=== PATIENT | female | born 1970 | race Caucasian/White ===

== ENCOUNTER 2016-10-12 11:45 | Emergency (ER) | payer MEDICAID ==
[~2016-10-12] VITALS: Ht 152.4 cm; Wt 72.6 kg
[~2016-10-12 11:45] MED LIST: ATIVAN1 MG PO; DONNATAL; DONNATAL1 TAB PO; NO MEDS; NORCO 5/325 MG1 TAB PO; PHENERGAN; PHENERGAN25 M1 PO; PRENATAL VITAMI1 T10 PO; SOMA350 MG PO; SYMBICORT1 AE1 IH; VICODIN; VICODIN-ES1 TAB; bcp
[2016-10-12 11:49] VITALS: BP 139/102
--- NOTE | 2016-10-12 13:00 | NUR ---
Patient ambulated to bed 6. RN evaluating patient at bedside.
--- NOTE | 2016-10-12 13:06 | NUR ---
PER PT SHE JUST URINATED , SHE CANNT GIVE URINE AT THIS TIME, INSTRUCTED TO LET NURSE KNOW WHEN SHE NEED TO GO TO THE BATHROOM AND PT AGREED WITH IT.
--- NOTE | 2016-10-12 13:07 | NUR ---
PATIENT PRESENTS TO ED DUE TO ABDOMINAL PAIN X3 DAYS. HX IBS. . PT STATES ITS BEEN A LONG TIME I DONT HAVE IBS, WITH N/V AND DIRRHEA, SKIN IS PINK/WARM/DRY; AAOX4 WITH EVEN AND STEADY GAIT; LUNGS CLEAR BL; HR EVEN AND REGULAR; PT DENIES ANY FEVER, CP, SOB, OR COUGH AT THIS TIME; PATIENT STATES PAIN OF 9/10 AT THIS TIME; PATIENT POSITIONED FOR COMFORT; HOB ELEVATED; BEDRAILS UP X2; BED DOWN. DR. GUY AT BEDSIDE
--- NOTE | 2016-10-12 13:07 | NUR ---
Dr. Franklin evaluating patient at bedside.
[2016-10-12] MEDS ORDERED: NACL 0.9% 1,000 ML IV SCH (13:10)
[2016-10-12] MEDS ORDERED: FAMOTIDINE 20 MG/2 ML VIAL IVP ONE (13:10)
[2016-10-12] MEDS ORDERED: ONDANSETRON 4 MG/2 ML VIAL IVP ONE (13:10)
[2016-10-12] MEDS ORDERED: DEXAMETHASONE 10 MG/ML VIAL IVP ONE (13:15)
--- NOTE | 2016-10-12 13:43 | NUR ---
TRIED BY TWO NURSES FOR IV INSERTION UNABLE, PER PT SHE IS VERY HARD STICK AND DOESNT WANT TO BE POKE AGAIN, DR. GUY AWARE
--- NOTE | 2016-10-12 13:57 | NUR ---
DR. GUY AWARE OF THE RESULT OF URINE DIPSTICK AND URINE PREG AND ALSO AWARE PT WANTS PAIN MEDICATION
--- NOTE | 2016-10-12 14:24 | NUR ---
DR. GUY TRY TO PUT IV IN THE NECK BUT UNABLE,PT AAO, NO DISTRESS NOTED.
[2016-10-12] MEDS ORDERED: HYDROmorphone 1 MG/ML AMP IM ONE (14:35)
--- NOTE | 2016-10-12 15:12 | NUR ---
PT VERBALIZED TRY AGAIN TO PUT AN IV ON MY LEFT ARM,
--- NOTE | 2016-10-12 15:40 | NUR ---
TALKED TO DR. GUY PT COMPLAINING OF ITCHINESS ALL OVER , DR GUY WILL ORDER MEDS.
[2016-10-12] MEDS ORDERED: diphenhydrAMINE 50 MG/ML VIAL IVP ONE (15:55)
--- NOTE | 2016-10-12 16:30 | NUR ---
PT TALKING TO STAFF ,IVF ONGOING WELL TOLERATED.
[2016-10-12] MEDS ORDERED: HYDROmorphone 1 MG/ML AMP IVP ONE ×2 (16:45→18:30)
--- NOTE | 2016-10-12 17:15 | NUR ---
PT AAO, IVF ONGOING WELL TOLERATED, IV SITE INTACT, PT TALKING ABOUT RAMY VICTORIA.
--- NOTE | 2016-10-12 19:03 | NUR ---
Patient discharged with v/s stable. Written and verbal after care instructions given and explained. Patient alert, oriented and verbalized understanding of instructions. Ambulatory with steady gait. ASSISTED BY .All questions addressed prior to discharge. ID band removed. Patient advised to follow up with PMD. Rx of TYLENOL,FLAGYL AND BACTRIM given. Patient educated on indication of medication including possible reaction and side effects. Opportunity to ask questions provided and answered.
[2016-10-12 19:04] VITALS: BP 127/77
== END 2016-10-12 19:03 | disposition home or self-care (01) ==
LOC: MED 11:49
DX: K58.9 Irritable bowel syndrome, unspecified (principal); R03.0 Elevated blood-pressure reading, without diagnosis of hypertension; J45.909 Unspecified asthma, uncomplicated; Z88.1 Allergy status to other antibiotic agents; Z88.5 Allergy status to narcotic agent; Z88.0 Allergy status to penicillin
CPT/HCPCS: 36415; 80053; 81001; 81025; 82150; 83690; 85025; 96361; 96372; 96374; 96375; 96376; 99285; J1100; J1170; J1200; J2405; J3490; J7030

== ENCOUNTER 2019-09-01 12:55 | Emergency (ER) | payer MEDICAID ==
[~2019-09-01] VITALS: Ht 152.4 cm; Wt 72.6 kg
[2019-09-01 13:02] VITALS: BP 118/84
--- NOTE | 2019-09-01 13:07 | NUR ---
DR. LAZAR EVALUATING PT AT BEDSIDE
[2019-09-01] MEDS ORDERED: NALOXONE PFS 2 MG/2 ML SYR ONE (13:09)
[2019-09-01] MEDS ORDERED: NACL 0.9% 1,000 ML IV ONE ×2 (13:12→13:15)
[2019-09-01] MEDS ORDERED: NALOXONE PFS 2 MG/2 ML SYR IVP ONE (13:15)
--- NOTE | 2019-09-01 13:20 | NUR ---
pt given narcan, nadr, pt arrousable to name. vs stable
--- NOTE | 2019-09-01 13:31 | NUR ---
EKG BEING PERFORMED AT BEDSIDE.
--- NOTE | 2019-09-01 13:34 | NUR ---
PT VS STABLE. DOES NOT FOLLOW COMMANDS, EYES CLOSED, BREATHING REGULAR. MD NOTIFIED. ADVISED TO GIVE ADDITIONAL NARCAN.
--- NOTE | 2019-09-01 13:40 | NUR ---
CALL TO [facility] RECCOMNEDED; 4-6 OBS POST LAST NARCAN MONITOR FOR ELEVATED ACTEMINOHPEN AND ALT/AST THEN START IV MUCOMYST
[2019-09-01 14:09] LABS: BASOPHILS # (AUTO) 0.1 K/uL (0.00-0.22); BASOPHILS % (AUTO) 0.9 % (0.0-2.0); EOSINOPHILS # (AUTO) 0.4 K/uL (0-0.4); EOSINOPHILS % (AUTO) 4.6 % (0.0-4.0); HEMATOCRIT 35.4 % (36-48); HEMOGLOBIN 11.4 g/dL (12.0-16.0); LYMPHOCYTES # (AUTO) 3.9 K/uL (2.5-16.5); LYMPHOCYTES % (AUTO) 48.6 % (20.5-51.1); MEAN CORPUSCULAR HEMOGLOBIN 29 pg (27-31); MEAN CORPUSCULAR HGB CONC 32 g/dL (33-37); MONOCYTES # (AUTO) 0.5 K/uL (0.8-1.0); MONOCYTES % (AUTO) 6.2 % (1.7-9.3); NEUTROPHILS # (AUTO) 3.1 K/uL (1.8-7.7); NEUTROPHILS % (AUTO) 39.7 % (42.2-75.2); PLATELET COUNT (AUTO) 346 K/uL (140-450); RED BLOOD CELL COUNT(AUTO) 3.89 MIL/uL (4.20-5.40); RED CELL DISTRIBUTION WIDTH 14.3 % (11.6-13.7); WHITE BLOOD COUNT (AUTO) 7.9 K/uL (4.8-10.8)
[2019-09-01] MEDS ORDERED: NALOXONE 0.4 MG/ML VIAL IVP ONE (14:15)
[2019-09-01 14:20] LABS: ANION GAP 7.6 (8-16); CARBON DIOXIDE 29.7 mmol/L (21-32); CHLORIDE 105 mmol/L (98-107); CREATININE 0.7 mg/dL (0.6-1.3); GFR ARICAN-AMERICAN 116 mL/min (>90); GLUCOSE 91 mg/dL (74-106); POTASSIUM 4.3 mmol/L (3.5-5.1); SODIUM SERUM 138 mmol/L (136-145); UREA NITROGEN, BLOOD 18 mg/dL (7-18)
[2019-09-01 14:27] LABS: ACETAMINOPHEN 3.9 ug/ml (10-30); ALBUMIN 3.7 g/dL (3.4-5.0); ASPARTATE AMINOTRANSFERASE 13 U/L (15-37); TOTAL BILIRUBIN 0.1 mg/dL (0.0-1.0)
[2019-09-01 14:30] LABS: SALICYLATE < 2.8 mg/dL (2.8-20.0)
--- NOTE | 2019-09-01 14:30 | NUR ---
PT GIVEN SECOND DOSE OF NARCAN, MOVING EXTRMITIES, OPENS EYES ON COMMAND. NADR
[2019-09-01 14:53] LABS: APPEARANCE,URINE CLEAR (CLEAR); BILIRUBIN,URINE NEGATIVE (NEGATIVE); BLOOD, URINE NEGATIVE (NEGATIVE); COLOR,URINE YELLOW (YELLOW); LEUKOCYTE ESTERASE ,URINE NEGATIVE (NEGATIVE); NITRITE, URINE POSITIVE (NEGATIVE); UGLUCOSE NEGATIVE (NEGATIVE)
[2019-09-01 14:57] LABS: RBC,URINE 0 /HPF (0-5); WBC,URINE 0-5 /HPF (0-5)
[2019-09-01 15:03] LABS: BARBITURATE, URINE NEG. ng/ml (NEG <=200); BENZODIAZEPINE, URINE POS. ng/mL (NEG <=200); CANNABINOID, URINE NEG. ng/mL (NEG <=50); COCAINE, URINE NEG. ng/mL (NEG <=300); OPIATE, URINE POS. ng/mL (NEG <=2000); PHENCYCLIDINE SCREEN,URINE NEG. ng/mL (NEG <=25)
[2019-09-01] MEDS ORDERED: FLUMAZENIL 0.5 MG/5 ML VIAL IVP ONE ×2 (15:15→16:00)
--- NOTE | 2019-09-01 15:19 | NUR ---
PT NOT RESPONDING TO NARCAN. PT GIVEN RANAZICON, 0.2 MG. MOVING EXTREMITIES, RESPONDS TO NAME. NADR
--- NOTE | 2019-09-01 16:18 | NUR ---
PT NOT RESPONDING TO NAME, EYES CLOSED, SLEEPING. GAVE ORDERED RANAZICON 0.3MG. PT OPENED EYES, TALKING, FULLY AWAKE. REQUESTED TO AMBULATE TO THE RESTROOM. PT AMBULATED TO THE RESTROOM WITHOUT DIFFICULTY.
[2019-09-01 17:23] VITALS: BP 139/93
--- NOTE | 2019-09-01 17:23 | NUR ---
Patient discharged with v/s stable. Written and verbal after care instructions given and explained. Patient verbalized understanding. Ambulatory with steady gait. All questions addressed prior to discharge. Advised to follow up with PMD.
--- NOTE | 2019-09-02 08:49 | NUR ---
Late entry. Confirmed with RN that 0.9 NS IV completed at 1420
== END 2019-09-01 17:23 | disposition home or self-care (01) ==
LOC: MED 12:55
DX: T40.2X4A Poisoning by other opioids, undetermined, initial encounter (principal); T39.1X4A Poisoning by 4-Aminophenol derivatives, undetermined, initial encounter; T42.8X4A Poisoning by antiparkinsonism drugs and other central muscle-tone depressants, undetermined, initial encounter; F19.10 Other psychoactive substance abuse, uncomplicated; J45.909 Unspecified asthma, uncomplicated; I10 Essential (primary) hypertension; Z98.51 Tubal ligation status; Z88.6 Allergy status to analgesic agent; Z88.5 Allergy status to narcotic agent; Z88.0 Allergy status to penicillin; Y92.89 Other specified places as the place of occurrence of the external cause
CPT/HCPCS: 36415; 80053; 80305; 81001; 84484; 85025; 93005; 96374; 96375; 96376; 99284; G0480; G0482; J2310; J3490; J7030

== ENCOUNTER 2024-03-05 14:31 | Emergency (ER) | payer MEDICAID, OTHER ==
[~2024-03-05] VITALS: Ht 152.4 cm; Wt 74.8 kg
[2024-03-05 15:12] VITALS: BP 105/87; PULSE 95; RESP 18; TEMP 98.1; O2SAT 97
[2024-03-05] MEDS ORDERED: ACET-10509 PO (17:06)
[2024-03-05] MEDS: ONDANSETRON 4 MG TAB PO ONE (17:48)
[2024-03-05] MEDS: diphenhydrAMINE 50 MG/ML VIAL IM SCH (17:48)
[2024-03-05] MEDS: MORPHINE SULFATE 4 MG/ML SYR IM SCH (17:49)
== END 2024-03-05 17:58 | disposition home or self-care (01) ==
LOC: MED 14:31
DX: S90.01XA Contusion of right ankle, initial encounter (principal); S80.11XA Contusion of right lower leg, initial encounter; J45.909 Unspecified asthma, uncomplicated; I10 Essential (primary) hypertension; Z98.890 Other specified postprocedural states; Z98.51 Tubal ligation status; Z79.1 Long term (current) use of non-steroidal anti-inflammatories (NSAID); Z88.0 Allergy status to penicillin; Z88.5 Allergy status to narcotic agent; Z88.6 Allergy status to analgesic agent; W22.8XXA Striking against or struck by other objects, initial encounter; Y93.89 Activity, other specified; Y92.098 Other place in other non-institutional residence as the place of occurrence of the external cause; Y99.8 Other external cause status
CPT/HCPCS: 29515; 73590; 73610; 96372; 99284; J1200; J2270; Q0162